=== PATIENT | female | born 1990 | race Caucasian/White ===

== ENCOUNTER 2017-05-27 01:14 | Emergency (ER) | payer OTHER ==
[~2017-05-27] VITALS: Ht 170.2 cm; Wt 59.1 kg
[2017-05-27 01:17] VITALS: BP 123/82; PULSE 105; RESP 20; O2SAT 100
[2017-05-27] MEDS ORDERED: ONDA8TAB10 PO (01:46)
[2017-05-27 01:57] LABS: APPEARANCE,URINE CLEAR (CLEAR,HAZY); COLOR,URINE STRAW (YELLOW); OCCULT BLOOD,URINE NEGATIVE (NEGATIVE); UROBILINOGEN,URINE NORMAL (NORMAL)
--- NOTE | 2017-05-27 02:00 | ED.REPORT ---
HPI-General Illness Date of Service May 27, 2017 ED Provider: Franklin Mosher MD 27 y/o female with a hx of SVT and chronic UTIs presents to the ED complaining of throbbing flank pain bilaterally since last night. Her pain worsens when she lays down. She states this pain came on after "I had something like a seizure. I couldn't let go of the phone I was holding and I was just shaking." She was awake and responsive during this episode. The pt also states her sx are very similar to the time she was diagnosed with a toxigenic intestinal E-coli. She had diarrhea for a few weeks since that infection, though it seems to be improving now. She also complains of swelling and aching on the right side of her body. She has been experiencing chills but denies fever. Nursing Notes Stated Complaint: KIDNEY PAIN Chief Complaint: General Complaint Nursing Notes Reviewed: Yes Allergies: Coded Allergies: No Known Allergies (Unverified , 05/27/17) Scheduled Lorazepam (Lorazepam) 0.5 Mg Tablet 0.5 MG PO TID General Time Seen by MD: 01:22 Chief Complaint Other (flank pain bilaterally ) Hx Obtained From: Patient Arrived By: Walk-in Sudden in Onset?: Yes Onset Occurred: Yesterday Symptom Duration: Since onset Quality: Painful Radiation: : Does not radiate Severity: Current: Moderate Severity: Maximum: Moderate Recent Healthcare: No recent doctor visit Past Medical History Past Medical History SVT Chronic UTIs Past Surgical History none reported Smoking History Unknown if Ever Smoker Social History Drug Use: THC Other Social History: Good social support Ambulatory Status Independent Review of Systems Reports: episode of spasm/ "seizure like activity Reports: pain and swelling on the right side of the body. Full Review of Systems Constitutional: Reports: Chills, Denies: Fever GI: Reports: Diarrhea (improving) Female: Reports: Flank pain (bilaterally) Complete sys rev & neg: except as marked. Physical Exam Vital Signs Vital Signs Date Time Temp Pulse Resp B/P Pulse Ox O2 Delivery O2 Flow Rate FiO2 05/27/17 03:53 36.6 91 18 120/81 100 Room Air 05/27/17 01:17 36.6 105 20 123/82 100 Room Air Initial VS: Reviewed Head / Eyes: Atraumatic, Normocephalic Neck: Supple, Non-tender, Full range of motion Respiratory: No respiratory distress Cardiovascular: Intact distal pulses Abdomen / GI: Soft, Non-tender Extremities: Vascular intact, Neuro intact, No swelling, No tenderness Skin: Warm, Dry, No cyanosis Neurologic: Alert, Oriented, Nonfocal General/Constitutional: Awake, Alert, No acute distress, Cooperative Appearance / Presentation: Positive: Intoxicated Back: Atraumatic, Full range of motion Tender paraspinal muscles Lower Extremity / Pelvis / MS: Atraumatic, Full range of motion, No swelling ( noted on the right side compared to the left), Neurologic intact, Vascular intact Interpretation & Diagnostics Lab Results Interpretation Result Diagram: 05/27/17 0228 05/27/17 0228 Test 05/27/17 01:40 05/27/17 02:28 Urine Color Straw (YELLOW) Urine Appearance Clear (CLEAR,HAZY) Urine pH 6.0 (5.0-8.0) Urine Specific [place] 1.005 (1.003-1.035) Urine Protein Negativemg/dL (NEG,TRACE) Urine Glucose (UA) Negativemg/dL (NEGATIVE) Urine Ketones Negativemg/dL (NEGATIVE) Urine Occult Blood Negative (NEGATIVE) Urine Nitrite Negative (NEGATIVE) Urine Bilirubin Negative (NEGATIVE) Urine Urobilinogen Normalmg/dL (NORMAL) Urine Leukocyte Esterase Trace (NEGATIVE) Urine RBC 0-2/hpf (0-2) Urine WBC 0-5/hpf (0-5) Urine Epithelial Cells Few/hpf (NONE-MOD) Urine Crystals None seen (NONE SEEN) Urine Bacteria Few/hpf (NONE-FEW) Urine Hyaline Casts None/lpf (NONE) Urine Granular Casts None seen (NONE SEEN) Urine Waxy Casts None seen (NONE SEEN) Urine Red Blood Cell Casts None seen (NONE SEEN) Urine White Blood Cell Casts None seen (NONE SEEN) Urine Mucus None seen (None Seen) Urine Trichomonas None seen (NONE SEEN) Urine Yeast None (NONE SEEN) Urinalysis Comment None Urine Culture Reflexed Indicated White Blood Count 7.8th/mm3 (3.8-10.1) Red Blood Count 4.69mil/mm3 (3.90-5.20) Hemoglobin 15.0g/dL (12.0-15.6) Hematocrit 43.6% (35.0-46.0) Mean Corpuscular Volume 93.0fL (81-100) Mean Corpuscular Hemoglobin 32.0pg (27.0-35.0) Mean Corpuscular Hemoglobin Concent 34.4% (32.0-37.0) Red Cell Distribution Width 13.3% (12.3-15.4) Platelet Count 221bil/L (150-400) Neutrophils (%) (Auto) 57.5% (40-74) Lymphocytes (%) (Auto) 32.7% (14-46) Monocytes (%) (Auto) 5.4% (4-12) Eosinophils (%) (Auto) 3.8% (0-5) Basophils (%) (Auto) 0.5% (0-3) Prothrombin Time 10.1sec (8.1-12.5) Prothromb Time International Ratio 0.95ratio Sodium Level 142mEq/L (134-144) Potassium Level 3.7mEq/L (3.5-5.2) Chloride Level 103mEq/L (97-108) Carbon Dioxide Level 24mmol/L (18-29) Blood Urea Nitrogen 8mg/dL (6-20) Creatinine 0.74mg/dL (0.57-1.00) Estimat Glomerular Filtration Rate 136mL/min (>59) Glucose Level 107mg/dL (60-99) Calcium Level 8.6mg/dL (8.5-10.1) Magnesium Level 2.2mg/dL (1.6-2.6) Total Bilirubin 0.4mg/dL (0.0-1.2) Aspartate Amino Transf (AST/SGOT) 17U/L (0-50) Alanine Aminotransferase (ALT/SGPT) 15U/L (0-32) Alkaline Phosphatase 60U/L (25-150) Total Protein 7.3g/dL (6.4-8.4) Albumin 4.6g/dL (3.4-5.0) Lipase 24U/L (13-60) Alcohols 102mg/dL (0-10) Re-Eval/Medical Decision Med Decision/Clinical Course Multiple unrelated symptoms, several of no relation to observable physiology. She has right-sided sciatica. She is currently intoxicated and acknowledges multiple stressors in her life, including illness in her . Entire right body swelling does not correspond any known pathophysiology and she was advised that she may be observing leg swelling secondary to her sciatica and decreased use of the limb, but that it is unlikely she is experiencing generalized right sided swelling by any known mechanism. Spasm and other episodes appear to be related to hyperventilation and anxiety. Provided with brief supply of Ativan for muscle spasm, ongoing ibuprofen or Aleve for her back pain. Follow up with PCP. Time of Eval: 03:48 Re-Evaluation/Progress Note: Rechecked pt. Discussed lab results, diagnosis and plan to discharge. Pt understands and agrees with the plan. F/U instruction and RTER warning given. All questions addressed. Counseled Regarding: Diagnosis, Lab results, Need for follow-up, When/why to return to ED Discharge & Departure Primary Impression: Flank pain Additional Impressions: Alcohol intoxication Anxiety Disposition: Home Discharge Condition All VS Reviewed: Yes Condition: Stable Patient Instructions: Muscle Spasm (ED) Additional Instructions: This appears to be mostly consistent with muscular spasm. There is no evidence of kidney infection or stone with bleeding. Your labs are normal. I can find no indication to justify a radiation exposure and a CAT scan. Follow-up with your doctor in the office. Call tomorrow for follow-up this week. Return any time with other new symptoms of concern. Referrals: Racquel Limon Attestation Portions of this note were transcribed by Alexa Newton. I,, personally performed the history, physical exam and medical decision-making;I reviewed and confirmed the accuracy of the information in the transcribed note. Signed by Hadley Velez. 05/27/17 copies to: Racquel Limon Christopher W MD May 27, 2017 02:00 Alexa Newton May 27, 2017 02:14
[2017-05-27] MEDS ORDERED: 0.9% Sodium Chloride 1,000 ML IV ONE (02:09)
[2017-05-27] MEDS ORDERED: Ondansetron 2 mg/mL 2 mL Inj IVPUSH ONE (02:10)
[2017-05-27 02:37] LABS: BASOPHILS % (AUTO) 0.5 % (0-3); EOSINOPHILS % (AUTO) 3.8 % (0-5); MONOCYTES % (AUTO) 5.4 % (4-12); NEUTROPHILS % (AUTO) 57.5 % (40-74); Platelet Count 221 bil/L (150-400)
[2017-05-27 02:49] LABS: INR 0.95 ratio
[2017-05-27 03:07] LABS: Magnesium 2.2 mg/dL (1.6-2.6)
[2017-05-27] MEDS ORDERED: LORA0.5T PO (03:40)
[2017-05-27] MEDS ORDERED: LORazepam 0.5 mg Tablet PO ONE (03:50)
[2017-05-27 03:53] VITALS: BP 120/81; PULSE 91; RESP 18; O2SAT 100
== END 2017-05-27 04:02 | disposition home or self-care (01) ==
LOC: SED 01:14
DX: R10.9 Unspecified abdominal pain (principal); F10.129 Alcohol abuse with intoxication, unspecified; F41.9 Anxiety disorder, unspecified; I47.1 Supraventricular tachycardia; Z87.440 Personal history of urinary (tract) infections
CPT/HCPCS: 36415; 80053; 81000; 83690; 83735; 85025; 85610; 87086; 87088; 87507; 96361; 96374; 96375; 99285; G0480; J1885; J2405; J7030